=== PATIENT | male | born 1940 | race Asian ===

== ENCOUNTER 2019-03-19 15:39 | Inpatient (IN) | payer OTHER ==
[~2019-03-19] VITALS: Ht 167.6 cm; Wt 75.6 kg
--- NOTE | 2019-03-19 16:11 | ERD ---
ER Documentation Chief Complaint Chief Complaint Sent from for evaluation SOB, HPI This is a 78-year-old male with a known history of end-stage renal disease on hemodialysis every Saturday and Saturday. His military science instructor is Dr. Garcia. He had a full run of dialysis yesterday where they removed 3.5 L. Over the past several weeks the patient has been experiencing severe difficulty breathing during his dialysis. His is a nurse and states that they do not take the pulse oximetry during the dialysis session however she has been giving the patient supplemental oxygen during dialysis which improves his symptoms. Alen du saw their primary care physician as he was recently anemic with a hemoglobin of 8.2. However repeat hemoglobin improved to 10. He was instructed to follow- up with his hydraulics engineer who he did today. The hydraulics engineer sent the patient directly from the [facility] to the emergency room as the patient was severely hypoxic at rest at 82%. The hydraulics engineer indicated the patient appeared to be cyanotic. The patient denies any recent travel or prolonged immobilization. He did state that he had changes of his medication from Epogen to Mircera in November when his symptoms of dyspnea started to worsen. The patient quit tobacco in 2005. ROS All systems reviewed and are negative except as per history of present illness. Medications Home Meds Reported Medications Minoxidil* (Lonitin*) 2.5 Mg Tab, 5 MG PO DAILY, TAB 03/19/19 Levothyroxine Sodium* (Levothyroxine Sodium*) 200 Mcg Tablet, 100 MCG PO BEFORE BREAKFAST, #30 TAB 03/19/19 Sevelamer Carbonate* (Renvela*) 800 Mg Tablet, 4 TAB PO WITH MEALS, TAB 03/19/19 Doxazosin Mesylate* (Doxazosin Mesylate*) 4 Mg Tablet, 4 MG PO HS, TAB 03/19/19 Metoprolol Succinate* (Toprol XL*) 25 Mg Tab.sr.24h, 25 MG PO DAILY, #30 TAB 03/19/19 Allergies Allergies: Coded Allergies: No Known Allergy (Unverified , 03/19/19) Physical Exam Vitals Vital Signs Date Temp Pulse Resp B/P (MAP) Pulse Ox O2 O2 Flow FiO2 Time Delivery Rate 03/19/19 87 20 133/66 99 Room Air 18:04 (88) Mask 03/19/19 2.0 17:43 03/19/19 73 18 96 Nasal 2.0 17:43 Cannula 03/19/19 97.9 71 16 150/70 99 Nasal 4.0 17:22 (96) Cannula 03/19/19 Nasal 2 17:15 Cannula 03/19/19 98.0 74 20 207/87 88 15:46 (127) Physical Exam Constitutional:Well-developed. Well-nourished. HEENT:Normocephalic. Atraumatic.Pupils were equal round reactive to light. Moist mucous membranes.No tonsillar exudates. Neck: No nuchal rigidity. No lymphadenopathy. No posterior cervical spine tenderness or step-offs. Respiratory: Using accessory muscles of respiration.Lungs were clear to auscultation bilaterally. No rhonchi. No rales. No wheezing. Cardiovascular: Regular rate regular rhythm.No murmurs. No rubs were appreciated.S1, S2 normal. Distal pulses are palpable 2+ bilaterally. GI: Abdomen was soft. Nontender. Non Distended. No pulsatile abdominal masses or bruits. No rebound. No guarding. Bowel sounds were present and normal. Muscle skeletal: Full range of motion of both the upper and lower extremities bilaterally.Normal muscle tone.No assymetrical calf tenderness or swelling. Skin: Perioral cyanosis, no petechia, no purpura. No lesions on the palms or the soles of the feet. No maculopapular rash. NEURO: Patient was alert, awake, orientated x3.No facial droop. Gait observed and normal with no ataxia.Speech had regular rate and rhythm. No focal neurological deficits. Result Diagram: 03/19/19 1615 03/19/19 1615 Results 24 hrs Laboratory Tests Test 03/19/19 16:15 White Blood Count 4.3 10^3/ul Red Blood Count 3.59 10^6/ul Hemoglobin 11.2 g/dl Hematocrit 36.2 % Mean Corpuscular Volume 100.8 fl Mean Corpuscular Hemoglobin 31.2 pg Mean Corpuscular Hemoglobin Concent 30.9 g/dl Red Cell Distribution Width 15.7 % Platelet Count 160 10^3/UL Mean Platelet Volume 9.3 fl Immature Granulocytes % 0.200 % Neutrophils % 64.0 % Lymphocytes % 23.6 % Monocytes % 9.2 % Eosinophils % 2.3 % Basophils % 0.7 % Nucleated Red Blood Cells % 0.0 /100WBC Immature Granulocytes # 0.010 10^3/ul Neutrophils # 2.8 10^3/ul Lymphocytes # 1.0 10^3/ul Monocytes # 0.4 10^3/ul Eosinophils # 0.1 10^3/ul Basophils # 0.0 10^3/ul Nucleated Red Blood Cells # 0.0 10^3/ul Prothrombin Time 12.6 Sec Prothrombin Time Ratio 1.0 INR International Normalized Ratio 0.93 Activated Partial Thromboplast Time 31.6 Sec Sodium Level 137 mmol/L Potassium Level 4.4 mmol/L Chloride Level 89 mmol/L Carbon Dioxide Level 36 mmol/L Anion Gap 12 Blood Urea Nitrogen 59 mg/dl Creatinine 9.81 mg/dl Est Glomerular Filtrat Rate mL/min mL/min Glucose Level 94 mg/dl Calcium Level 10.4 mg/dl Total Bilirubin 0.1 mg/dl Direct Bilirubin 0.00 mg/dl Indirect Bilirubin 0.1 mg/dl Aspartate Amino Transf (AST/SGOT) 23 IU/L Alanine Aminotransferase (ALT/SGPT) 23 IU/L Alkaline Phosphatase 67 IU/L Creatine Kinase 81 IU/L Creatine Kinase Index 1.9 Creatinine Kinase MB (Mass) 1.54 ng/ml Troponin I 0.031 ng/ml B-Type Natriuretic Peptide 37746 PG/ML Total Protein 7.7 g/dl Albumin 4.1 g/dl Globulin 3.60 g/dl Albumin/Globulin Ratio 1.13 Current Medications Medications Dose Sig/David Start Time Status Last (Trade) Ordered Route PRN Stop Time Admin Dose Reason Admin Albuterol 5 mg ONCE STAT 03/19/19 DC 03/19/19 (Proventil NEB 17:12 03/19/19 17:40 0.083% (Neb)) 17:19 Ipratropium 0.5 mg ONCE STAT 03/19/19 DC 03/19/19 [place] NEB 17:12 03/19/19 17:40 (Atrovent 17:19 0.02% (Neb)) Ondansetron 4 mg ER BRIDGE 03/19/19 HCl (Zofran PRN IV 18:30 03/20/19 Inj) NAUSEA/VOMITI 18:29 NG 650 mg ER BRIDGE 03/19/19 Acetaminophen PRN PO 18:30 03/20/19 (Tylenol .MILD PAIN 18:29 Tab) 1-3 OR TEMP Procedures/MDM The patient presented to the emergency department with shortness of breath. My differential diagnosis included but was not limited to upper airway obstruction, CHF, pulmonary embolism, cardiac ischemia, pneumonia, pneumothorax, anemia, drug overdose, pulmonary edema, COPD or asthma. 12 Lead EKG tracing ordered and reviewed by myself showed: Normal sinus rhythm of 73 bpm and no arrhythmia. NC interval prolonged in all leads at 220 ms with a first-degree AV block QRS duration normal. No ST segment elevation No ST segment depression. No changes consistent with acute ischemia. 1 view chest radiograph on reviewed by myself showed cardiomegaly with mild pulmonary vascular congestion. The patient received nebulizer treatments of albuterol and Atrovent. The patient does make urine and had a full run of dialysis yesterday with removal of 3.5 L. Patient had immediately been placed on low flow supplemental oxygen of 6 L nasal cannula. This was weaned down to 4 L nasal cannula patient is now satting at 98% on room low flow supplemental oxygen. The patient's BUN was 59. Creatinine was 9.81. The patient's potassium was normal at 4.4. The patient's BNP was significantly elevated however this is due to the fact that the patient has end-stage renal disease on hemodialysis. The patient will be admitted under the care of Dr. Nance. I have discussed with the admitting physician as well as the family about undergoing a CT angios to rule out for pulmonary embolism. The patient did agree to have this procedure done and will undergo emergent dialysis first thing in the morning. 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 I did feel the patient required admission to the telemetry service as when he initially arrived he was hypertensive. There is no signs at this time of endorgan damage. His blood pressure had improved after he received supplemental oxygen therefore I felt the hypertension was likely exacerbated by his dyspnea. Departure Diagnosis: Primary Impression: Hypoxia Additional Impression: Accelerated hypertension Condition: Serious MOISES GOFF MD March 19, 2019 16:11
[2019-03-19] MEDS ORDERED: METO-335 PO (16:37)
[2019-03-19] MEDS ORDERED: DOXA4TAB3 PO (16:37)
[2019-03-19] MEDS ORDERED: SEVE800T7 PO (16:38)
[2019-03-19] MEDS ORDERED: LEVO200T6 PO (16:39)
[2019-03-19] MEDS ORDERED: MINO2.5T16 PO (16:40)
[2019-03-19] MEDS ORDERED: IPRATROPIUM (NEB) 0.5 MG/2.5 ML AMP NEB STA (17:12)
[2019-03-19] MEDS ORDERED: ALBUTEROL 0.083% (NEB) 2.5 MG/3 ML AMP NEB STA (17:12)
[2019-03-19] MEDS ORDERED: ACETAMINOPHEN 325 MG TAB PO PRN (18:30)
[2019-03-19] MEDS ORDERED: ONDANSETRON 4 MG INJ IV PRN ×2 (18:30→22:00)
[2019-03-19] MEDS ORDERED: IODIXANOL LOCM 100 ML BTL ONE (20:29)
[2019-03-19] MEDS ORDERED: SOD CHLORIDE 0.9% 100 ML ONE (20:29)
[2019-03-19 21:02] VITALS: PULSE 74
[2019-03-19] MEDS ORDERED: ACETAMINOPHEN 500 MG TAB PO PRN (22:00)
[2019-03-19 22:30] VITALS: Ht 167.6 cm; Wt 75.6 kg
[2019-03-19] MEDS ORDERED: DOXAZOSIN 4 MG TAB PO SCH (22:30)
[2019-03-19] MEDS ORDERED: RENVELA XX SCH (22:30)
[2019-03-19] MEDS: SEVELAMER CARBONATE 800 MG TABLET PO SCH (23:02)
[2019-03-19] MEDS: CEFTRIAXONE 1 GM/50 ML (PMX) 50 ML IVPB SCH (23:15)
[2019-03-19] MEDS: METOPROLOL (XL) 25 MG TAB PO SCH (23:34)
[2019-03-19] MEDS: AZITHROMYCIN 500MG/NS (PMX) 250 ML IVPB SCH (23:56)
[2019-03-19 23:57] VITALS: BP 141/64; PULSE 74; RESP 18
[2019-03-20] VITALS (23 sets, daily range): BP systolic 122–157; BP diastolic 50–75; PULSE 58–73; RESP 18–20
[2019-03-20] MEDS ORDERED: LEVOTHYROXINE 100 MCG TAB PO SCH (07:00)
[2019-03-20] MEDS ORDERED: SEVELAMER CARBONATE 0.8 GM PKT PO SCH (08:00)
[2019-03-20] MEDS: SEVELAMER CARBONATE 800 MG TABLET PO SCH ×3 (08:24→16:50)
[2019-03-20] MEDS ORDERED: METOPROLOL (XL) 25 MG TAB PO SCH (09:00)
[2019-03-20] MEDS ORDERED: MINOXIDIL 2.5 MG TAB PO SCH (09:00)
--- NOTE | 2019-03-20 10:56 | CONS ---
Assessment/Plan Assessment/Plan Assessment/Plan (Daily) - ESRD hemodialysis dependent - Chronic Anemia - CAD / CHF - Hypertension - Hyperphosphatemia PLAN: - On Bedside dialysis now - Aiming for ~ 3.0-3.5 kg removal / UF - Had a long discussion with family & will plan for 4 times dialysis as out patient to lower his EDW / Volume status - Will require Home O2 - Continue with EPO to maintain a Hgb ~ 10 or better - Adequate IRON levels as out patient THANK YOU Eliazar MCMAHON Consultation Date/Type/Reason Admit Date/Time March 19, 2019 at 18:30 Date of Consultation: March 20, 2019 Type of Consult Nephrology Reason for Consultation - ESRD on Hemodialysis Date/Time of Note DATE: 03/20/19 TIME: 10:50 Hx of Present Illness - Was sent from Cardiology Office with SOB / Volume Overload / Difficulty b reathing. - [facility] [place] [facility] - Chronic anemia Constitutional: no complaints Eyes: no complaints ENT: no complaints Respiratory: shortness of breath Cardiovascular: no complaints Gastrointestinal: no complaints Genitourinary: no complaints Musculoskeletal: no complaints Skin: no complaints Neurologic: no complaints Past Medical History Medical History: angina, congestive heart failure, coronary artery disease, hy pertension, renal disease Home Meds Reported Medications Minoxidil* (Lonitin*) 2.5 Mg Tab, 5 MG PO DAILY, TAB 03/19/19 Levothyroxine Sodium* (Levothyroxine Sodium*) 200 Mcg Tablet, 100 MCG PO BEFORE BREAKFAST, #30 TAB 03/19/19 Sevelamer Carbonate* (Renvela*) 800 Mg Tablet, 4 TAB PO WITH MEALS, TAB 03/19/19 Doxazosin Mesylate* (Doxazosin Mesylate*) 4 Mg Tablet, 4 MG PO HS, TAB 03/19/19 Metoprolol Succinate* (Toprol XL*) 25 Mg Tab.sr.24h, 25 MG PO DAILY, #30 TAB 03/19/19 Medications Current Medications Ceftriaxone Sodium 50 ml @ 100 mls/hr Q24H IVPB Last administered on 03/19/19at 23:15; Admin Dose 100 MLS/HR; Start 03/19/19 at 22:00 Azithromycin 250 ml @ 250 mls/hr Q24H IVPB Last administered on 03/19/19at 23:56; Admin Dose 250 MLS/HR; Start 03/19/19 at 22:00 Ondansetron HCl (Zofran Inj) 4 mg Q4H PRN IV NAUSEA AND/OR VOMITING; Start 03/19/19 at 22:00 Acetaminophen (Tylenol Tab) 1,000 mg Q6H PRN PO MILD PAIN(1-3)OR ELEVATED TEMP; Start 03/19/19 at 22:00 Minoxidil (Loniten) 5 mg DAILY PO Last administered on 03/20/19at 08:24; Admin Dose 5 MG; Start 03/20/19 at 09:00 Doxazosin Mesylate (Cardura) 4 mg HS PO Last administered on 03/19/19at 23:35; Admin Dose 4 MG; Start 03/19/19 at 22:30 Metoprolol Succinate (Toprol Xl) 25 mg DAILY PO Last administered on 03/19/19at 23:34; Admin Dose 25 MG; Start 03/19/19 at 22:30 Sevelamer Carbonate (Renvela) 3,200 mg WITH MEALS PO Last administered on 03/20/19at 08:24; Admin Dose 3,200 MG; Start 03/19/19 at 22:30 Levothyroxine Sodium (Synthroid) 125 mcg DAILY@06 PO ; Start 03/21/19 at 06:00 Allergies: Coded Allergies: No Known Allergy (Unverified , 03/19/19) Past Surgical History Past Surgical Hx: no surgical history Family History Significant Family History: no pertinent family hx Social History Alcohol Use: none Smoking Status: Former smoker Drug Use: none Exam/Review of Systems Exam Vitals Vital Signs Date Temp Pulse Resp B/P (MAP) Pulse Ox O2 O2 Flow FiO2 Time Delivery Rate 03/20/19 68 08:00 03/20/19 98.0 20 122/58 94 Nasal 4.0 07:51 (79) Cannula Intake and Output 03/19/19 03/19/19 03/20/19 1515:00 23:00 07:00 IntakeIntake Total 100 ml 300 ml BalanceBalance 100 ml 300 ml Constitutional: alert, oriented Psych: no complaints Head: normocephalic Eyes: nl conjunctiva Respiratory: crackles/rales Cardiovascular: regular rate and rhythm, systolic murmur Gastrointestinal: soft Results Result Diagram: 03/20/1951803/20/19518 Results 24hrs Laboratory Tests Test 03/19/19 16:15 03/19/19 21:00 03/20/19 05:19 White Blood Count 4.3 L 4.4 L Red Blood Count 3.59 L 3.10 L Hemoglobin 11.2 L 9.7 L Hematocrit 36.2 L 30.9 L Mean Corpuscular Volume 100.8 99.7 Mean Corpuscular Hemoglobin 31.2 31.3 Mean Corpuscular 30.9 L 31.4 L Hemoglobin Concent Red Cell Distribution Width 15.7 H 15.9 H Platelet Count 160 133 L Mean Platelet Volume 9.3 9.4 Immature Granulocytes % 0.200 0.200 Neutrophils % 64.0 64.9 Lymphocytes % 23.6 22.6 Monocytes % 9.2 9.1 Eosinophils % 2.3 2.5 Basophils % 0.7 0.7 Nucleated Red Blood Cells % 0.0 0.0 Immature Granulocytes # 0.010 0.010 Neutrophils # 2.8 2.8 Lymphocytes # 1.0 1.0 Monocytes # 0.4 0.4 Eosinophils # 0.1 0.1 Basophils # 0.0 0.0 Nucleated Red Blood Cells # 0.0 0.0 Prothrombin Time 12.6 Prothrombin Time Ratio 1.0 INR International 0.93 Normalized Ratio Activated Partial Thromboplast 31.6 Time Sodium Level 137 138 Potassium Level 4.4 4.3 Chloride Level 89 L 95 L Carbon Dioxide Level 36 H 30 Anion Gap 12 13 Blood Urea Nitrogen 59 H 66 H Creatinine 9.81 H 11.36 H Est Glomerular Filtrat Rate mL/min Glucose Level 94 67 #L Calcium Level 10.4 H 9.8 Total Bilirubin 0.1 L Direct Bilirubin 0.00 Indirect Bilirubin 0.1 Aspartate Amino 23 Transf (AST/SGOT) Alanine 23 Aminotransferase (ALT/SGPT) Alkaline Phosphatase 67 Creatine Kinase 81 Creatine Kinase Index 1.9 Creatinine Kinase MB (Mass) 1.54 Troponin I 0.031 B-Type Natriuretic Peptide 11852 H Total Protein 7.7 Albumin 4.1 3.3 Globulin 3.60 H Albumin/Globulin Ratio 1.13 Blood Gas Specimen Source Blood arterial Arterial Blood Date Drawn 03/19/2019 8:15:47 PM Arterial Blood pH 7.454 H (Temp corrected) Arterial Blood pCO2 45.1 H (Temp correct) Arterial Blood pO2 82.5 (Temp corrected) Arterial Blood HCO3 30.9 H Arterial Blood Base Excess 6.3 H Arterial Blood 95.5 Oxygen Saturation Alejo Test ACCEPTAB Arterial Blood Gas Left Radial Puncture Site Arterial 0.6 Blood Carboxyhemoglobin Arterial Blood Methemoglobin 0.3 Blood Gas A-a O2 Differential 100.1 H Oxyhemoglobin Percent 94.6 Blood Gas Temperature 37.0 Blood Gas Modality NASAL CANNULA FiO2 33.0 Blood Gas Notified Whom UP Blood Gas Notified Time 03/19/2019 8:27:56 PM Phosphorus Level 5.8 H Triglycerides Level 56 Cholesterol Level 83 L LDL Cholesterol, Calculated 34 HDL Cholesterol 38 Cholesterol/HDL Ratio 2.1 Thyroid Stimulating 6.250 H Hormone (TSH) Free Thyroxine 1.59 Hepatitis B Surface Antigen NEGATIVE Hepatitis B Surface Antibody POSITIVE H Medications Medication Current Medications Ceftriaxone Sodium 50 ml @ 100 mls/hr Q24H IVPB Last administered on 03/19/19 23:15; Admin Dose 100 MLS/HR; Start 03/19/19 at 22:00 Azithromycin 250 ml @ 250 mls/hr Q24H IVPB Last administered on 03/19/19 23:56; Admin Dose 250 MLS/HR; Start 03/19/19 at 22:00 Ondansetron HCl (Zofran Inj) 4 mg Q4H PRN IV NAUSEA AND/OR VOMITING; Start 03/19/19 at 22:00 Acetaminophen (Tylenol Tab) 1,000 mg Q6H PRN PO MILD PAIN(1-3)OR ELEVATED TEMP; Start 03/19/19 at 22:00 Minoxidil (Loniten) 5 mg DAILY PO Last administered on 03/20/19 08:24; Admin Dose 5 MG; Start 03/20/19 at 09:00 Doxazosin Mesylate (Cardura) 4 mg HS PO Last administered on 03/19/19 23:35; Admin Dose 4 MG; Start 03/19/19 at 22:30 Metoprolol Succinate (Toprol Xl) 25 mg DAILY PO Last administered on 03/19/19 23:34; Admin Dose 25 MG; Start 03/19/19 at 22:30 Sevelamer Carbonate (Renvela) 3,200 mg WITH MEALS PO Last administered on 03/20/19 08:24; Admin Dose 3,200 MG; Start 03/19/19 at 22:30 Levothyroxine Sodium (Synthroid) 125 mcg DAILY@06 PO ; Start 03/21/19 at 06:00 SHANIQUE VALDEZ MD March 20, 2019 10:56
[2019-03-20] MEDS ORDERED: DOXAZOSIN 4 MG TAB PO SCH ×2 (21:00)
[2019-03-20] MEDS: AZITHROMYCIN 500MG/NS (PMX) 250 ML IVPB SCH (22:00)
[2019-03-20] MEDS: CEFTRIAXONE 1 GM/50 ML (PMX) 50 ML IVPB SCH (22:00)
[2019-03-20] MEDS: METOPROLOL (XL) 25 MG TAB PO SCH (22:41)
[2019-03-21] MEDS ORDERED: LEVOTHYROXINE 125 MCG TAB PO SCH (06:00)
[2019-03-21] MEDS ORDERED: MINOXIDIL 2.5 MG TAB PO SCH (11:00)
--- NOTE | 2019-03-22 11:01 | DS ---
DATE OF ADMISSION: 03/19/2019 DATE OF DISCHARGE: 03/20/2019 DISCHARGE DIAGNOSES: 1. Fluid overload. 2. End-stage renal disease, on hemodialysis. 3. Possible pneumonia. 4. Chronic anemia. 5. Hypertension. 6. Coronary artery disease, stable. HOSPITAL COURSE: A 78-year-old male with end-stage renal disease, presented to emergency room with c omplaint of shortness of breath and dyspnea on exertion for several weeks. The patient denied any co ugh. No chest pain. No fevers or chills. Initial evaluation revealed evidence of fluid overload. CAT scan of the chest showed left upper lobe and right lower lobe infiltrates. However, there was no clinical evidence of pneumonia. He was seen in consultation by Dr. Crane. His symptoms improved with dialysis. Room air saturation was 98%. Patient was discharged home in stable condition. I rec ommended a course of Zithromax as an outpatient and contacted his . MEDICATIONS ON DISCHARGE: 1. Doxazosin 4 mg p.o. at bedtime. 2. Toprol-XL 25 mg daily. 3. Minoxidil 5 mg daily. 4. 4 tablets with meals. 5. Levothyroxine 100 mcg daily. The patient was instructed to follow up with PCP and Dr. Crane as outpatient. Home oxygen was ordered per 's request. Dictated By: ANNA CHAPARRO/KEATON Conf#: [id number] DID#: [id number] CC: SARAH EPPERSON MD;*EndCC*
--- NOTE | 2019-03-23 07:45 | HP ---
DATE OF ADMISSION: 03/19/2019 CHIEF COMPLAINT: Shortness of breath. HISTORY OF PRESENT ILLNESS: A 78-year-old male with end-stage renal disease, on hemodialysis, presen juan to emergency room with complaints of shortness of breath and dyspnea on exertion for about 3 week s. The patient reports a mild productive cough of clear sputum. No fevers or chills. No chest pain . He was dialyzed today prior to admission and 3.5 liters of fluid were removed. Initial evaluation revealed a normal white count and hemoglobin of 9.7. Chest x-ray showed pulmonary vascular congestion. CT pulmonary angiogram did not show any evidence of PE. However, infiltrates were noted in the right lower lobe and left upper lobe. The patient had a 2D echo several months sandra or to admission. According to his , his ejection fraction is 60%. PAST MEDICAL HISTORY: 1. End-stage renal disease, on hemodialysis. 2. Hypertension. 3. Hypothyroidism. 4. Benign prostatic hypertrophy. MEDICATIONS PRIOR TO ADMISSION: Doxazosin, metoprolol, minoxidil, and levothyroxine. SOCIAL HISTORY: The patient lives at home. He denies tobacco or alcohol use. 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 PHYSICAL EXAMINATION: GENERAL: Well-developed, well-nourished, obese male who is in no apparent distress. VITAL SIGNS: Stable. He is afebrile. HEENT: Extraocular muscles intact. Pupils are equal and reactive to light bilaterally. Sclerae are anicteric. Oropharynx is clear and moist. NECK: Supple, no JVD, no carotid bruits. LUNGS: Mild rhonchi. CARDIAC: Regular rate and rhythm. No murmurs, rubs or gallops. ABDOMEN: Soft, obese, nontender, nondistended, normoactive bowel sounds. EXTREMITIES: No clubbing, cyanosis, or edema. NEUROLOGIC: Nonfocal. The patient was undergoing hemodialysis at the time of my visit. ASSESSMENT: 1. A 78-year-old male with a community-acquired pneumonia. 2. Hypoxia. 3. End-stage renal disease, on hemodialysis. 4. Hypertension. 5. Hypothyroidism. 6. Benign prostatic hypertrophy. PLAN: 1. Admit to Med/Surg. Continue IV Rocephin and Zithromax. Resume all home medications. Increase S ynthroid to 125 mcg p.o. daily. 2. Discharge planning home soon with home oxygen. Dictated By: ANNA CHAPARRO/KEATON Conf#: [id number] DID#: [id number] CC: SHANIQUE VALDEZ MD;*EndCC*
== END 2019-03-20 22:10 | disposition home health service (06) | DRG 640 ==
LOC: E/R 15:39 → 6WM 18:30
PROVIDERS: ADMIT Internal Medicine; ATTEND Internal Medicine
PROC: 5A1D70Z Performance of Urinary Filtration, Intermittent, Less than 6 Hours Per Day (ICD-10-PCS; principal; 2019-03-19)
PROC: 5A1D70Z Performance of Urinary Filtration, Intermittent, Less than 6 Hours Per Day (ICD-10-PCS; 2019-03-20)
DX: E87.70 Fluid overload, unspecified (principal); N18.6 End stage renal disease; J18.9 Pneumonia, unspecified organism; I12.0 Hypertensive chronic kidney disease with stage 5 chronic kidney disease or end stage renal disease; I13.2 Hypertensive heart and chronic kidney disease with heart failure and with stage 5 chronic kidney disease, or end stage renal disease; I50.9 Heart failure, unspecified; D64.9 Anemia, unspecified; E83.39 Other disorders of phosphorus metabolism; E03.9 Hypothyroidism, unspecified; N40.0 Benign prostatic hyperplasia without lower urinary tract symptoms; R09.02 Hypoxemia; I25.10 Atherosclerotic heart disease of native coronary artery without angina pectoris; Z99.2 Dependence on renal dialysis; Z87.891 Personal history of nicotine dependence
CPT/HCPCS: 36600; 71045; 71275; 80053; 80061; 80069; 82550; 82553; 82803; 83880; 84439; 84443; 84484; 85025; 85610; 85730; 86706; 87340; 90935; 93005; 94664; J0456; J0696; Q9967